=== PATIENT | male | born 1945 | race Caucasian/White ===

== ENCOUNTER 2017-12-23 12:08 | Emergency (ER) | payer MEDICARE ==
[2017-12-23 12:31] VITALS: BP 155/94
--- NOTE | 2017-12-23 13:15 | UC ---
Respiratory Complaint HPI - HPI Summary HPI Summary: Pt c/o cough, nasal congestion and SOB X 6 months. Pt states taht he "gets in coughing fits and can not catch his breath". reports that pt will "turn blue" when in coughing fit. Pt is not UTD with pertussis vaccine. - History of Current Complaint Chief Complaint: UCRespiratory Stated Complaint: COUGH X 6 MONTHS Time Seen by Provider: 12/23/17 12:58 Hx Obtained From: Patient Onset/Duration: Gradual Onset, Lasting Weeks, Still Present Timing: Intermittent Episodes Severity Initially: Mild Severity Currently: Moderate Pain Intensity: 0 Character: Cough: Productive Aggravating Factors: Exertion, Deep Breaths, Recumbent Position Alleviating Factors: Nothing Associated Signs And Symptoms: Positive: Chills, URI - Risk Factors Pulmonary Embolism Risk Factors: Smoking - hx Cardiac Risk Factors: Smoking - hx, Prior MN Pseudomonas Risk Factors: Chronic Lung Disease - has at home O2 given after MN to use as needed Tuberculosis Risk Factors: Diabetes, Smoking - hx of - Allergies/Home Medications Allergies/Adverse Reactions: Allergies Allergy/AdvReac Type Severity Reaction Status Date / Time No Known Allergies Allergy Verified 12/23/17 12:25 Home Medications: Home Medications Ascorbic Acid TAB* [Vitamin C TAB*] 500 mg PO DAILY 12/23/17 [History Confirmed 12/23/17] Atorvastatin* [Lipitor 80 MG*] 80 mg PO DAILY 12/23/17 [History Confirmed ] Calcium Carb/D3/Mag Aa Chelate [Coral Calcium Capsule] 1 cap PO EVERY OTHER DAY 12/23/17 [History Confirmed 12/23/17] Cyanocobalamin TAB* [Vitamin B12 TAB*] 500 mcg PO DAILY 12/23/17 [History Confirmed 12/23/17] Dulaglutide (NF) [Trulicity (NF)] 1.5 mg SUBCUT WEEKLY 12/23/17 [History Confirmed 12/23/17] Enalapril TAB* [Vasotec TAB*] 20 mg PO BID 12/23/17 [History Confirmed 12/23/17] Furosemide TAB* [Lasix TAB*] 80 mg PO DAILY 12/23/17 [History Confirmed 12/23/17 ] Influenza VAC *QUAD* * [Fluarix *Quad* *] 0.5 ml IM .ONCE [History Confirmed 12/23/17] Levothyroxine TAB* [Synthroid 150 MCG TAB*] 150 mcg PO DAILY 12/23/17 [History Confirmed 12/23/17] Metoprolol Succinate XL TAB* [Toprol XL TAB*] 100 mg PO BID 12/23/17 [History Confirmed 12/23/17] Pneumococcal *Vac Polyvalent [Pneumococcal Vac 23-Polyvalent*] 0.5 ml .SEE ORDER ONCE 12/23/17 [History Confirmed 12/23/17] Spironolactone TAB* [Aldactone TAB 25 MG*] 50 mg PO DAILY 12/23/17 [History Confirmed 12/23/17] Warfarin TAB(*) [Coumadin TAB(*)] 5 mg PO DAILY 12/23/17 [History Confirmed ] amLODIPine TAB* [Norvasc 5 mg TAB*] 10 mg PO DAILY 12/23/17 [History Confirmed 12/23/17] metFORMIN* [Glucophage 1000 MG TAB *] 1,000 mg PO BID 12/23/17 [History Confirmed 12/23/17] PMH/Surg Hx/FS Hx/Imm Hx Previously Healthy: Yes Endocrine History: Diabetes, Dyslipidemia Cardiovascular History: Cardiac Disease, Hypertension Respiratory History: COPD - Surgical History Surgical History: Yes Surgery Procedure, Year, and Place: Coronary Artery Stents x 2012, [facility] - Family History Known Family History: Positive: Cardiac Disease - Social History Occupation: Retired Lives: With Family Alcohol Use: None Substance Use Type: None Smoking Status (MU): Former Smoker Type: Cigarettes Have You Smoked in the Last Year: No - Immunization History Vaccination Up to Date: No Review of Systems Constitutional: Chills, Fatigue Skin: Negative Eyes: Negative ENT: Sinus Congestion Respiratory: Shortness Of Breath, Cough Cardiovascular: Negative Gastrointestinal: Negative Genitourinary: Negative Motor: Negative Neurovascular: Negative Musculoskeletal: Negative Neurological: Negative Psychological: Negative Is Patient Immunocompromised?: No All Other Systems Reviewed And Are Negative: Yes Physical Exam Triage Information Reviewed: Yes Appearance: Ill-Appearing Vital Signs: Initial Vital Signs Temp 98.4 F 12/23/17 12:21 Pulse 100 12/23/17 12:21 Resp 24 12/23/17 12:21 BP 155/94 12/23/17 12:21 Pulse Ox 95 10/27/18 12:21 Vital Signs Reviewed: Yes Eye Exam: Normal ENT: Positive: Nasal congestion Dental Exam: Normal Neck exam: Normal Respiratory: Positive: Decreased breath sounds Cardiovascular Exam: Normal Cardiovascular: Positive: Tachycardia Musculoskeletal Exam: Normal Neurological Exam: Normal Psychological Exam: Normal Skin Exam: Normal UC Diagnostic Evaluation - Laboratory O2 Sat by Pulse Oximetry: 95 - Radiology Summary of Radiographic Findings: IMPRESSION: FINDINGS SUGGESTIVE OF COPD, NO EVIDENCE FOR ACUTE FINDING. Respiratory Course/Dx - Differential Dx/Diagnosis Differential Diagnosis/HQI/PQRI: Bronchitis, Influenza, Other - pertussis, pneumonia Provider Diagnoses: bronchitis Discharge - Sign-Out/Discharge Documenting (check all that apply): Patient Departure All imaging exams completed and their final reports reviewed: Yes - Discharge Plan Condition: Stable Disposition: HOME Prescriptions: Albuterol HFA INHALER* [Ventolin HFA Inhaler*] 1 - 2 puff INH Q4H PRN #1 mdi PRN Reason: Sob/Wheezing Azithromycin TAB* [Zithromax TAB (Z-DAVID) 250 mg #6 tabs] 2 tab PO .TODAY, THEN 1 DAILY #1 david Benzonatate CAP* [Tessalon 100 MG CAP*] 100 mg PO Q8H PRN #30 cap PRN Reason: Cough Patient Education Materials: Acute Bronchitis (ED) Referrals: Linus Mclain MD [Primary Care Provider] - 5 Days - Billing Disposition and Condition Condition: STABLE Disposition: Home - Attestation Statements Provider Attestation: I was available for consult. This patient was seen by the DEBORAH. The patient was not presented to, seen by, or examined by me. -Donavon
--- NOTE | 2017-12-23 13:53 | RAD ---
INDICATION: Shortness of breath and cough. COMPARISON: There are no relevant prior studies available for comparison. TECHNIQUE: Dual-energy PA and lateral views of the chest were obtained. FINDINGS: The heart is within normal limits in size. Mediastinal and hilar contours appear within normal limits. The lungs are underinflated with more focal elevation of the right hemidiaphragm. The lungs appear clear. No pleural effusion is seen. There is flattening of the diaphragms suggestive of chronic obstructive pulmonary disease. IMPRESSION: LOW LUNG VOLUMES, NO EVIDENCE FOR ACUTE FINDING.
[2017-12-23] MEDS ORDERED: Ipratropium 0.5MG/2.5ML NEB* 0.5 MG/2.5 ML NEB.SOLN INH ONE (13:59)
[2017-12-26 19:48] LABS: Bordetella pertussis PCR Negative
--- NOTE | 2017-12-27 07:12 | UC ---
- Progress Note Progress Note: kameron Luciano no change ljj 12/27/2017 Discharge - Sign-Out/Discharge Documenting (check all that apply): Post-Discharge Follow Up All imaging exams completed and their final reports reviewed: Yes - Discharge Plan Condition: Stable Disposition: HOME Prescriptions: Albuterol HFA INHALER* [Ventolin HFA Inhaler*] 1 - 2 puff INH Q4H PRN #1 mdi PRN Reason: Sob/Wheezing Azithromycin TAB* [Zithromax TAB (Z-JAY) 250 mg #6 tabs] 2 tab PO .TODAY, THEN 1 DAILY #1 jay Benzonatate CAP* [Tessalon 100 MG CAP*] 100 mg PO Q8H PRN #30 cap PRN Reason: Cough Patient Education Materials: Acute Bronchitis (ED) Referrals: Linus Mclain MD [Primary Care Provider] - 5 Days - Billing Disposition and Condition Condition: STABLE Disposition: Home
== END 2017-12-23 14:21 | disposition home or self-care (01) ==
LOC: UCCORT 12:08
DX: J40 Bronchitis, not specified as acute or chronic (principal); E11.9 Type 2 diabetes mellitus without complications; I10 Essential (primary) hypertension; J44.9 Chronic obstructive pulmonary disease, unspecified; E78.5 Hyperlipidemia, unspecified; Z79.01 Long term (current) use of anticoagulants; Z79.899 Other long term (current) drug therapy; Z95.5 Presence of coronary angioplasty implant and graft; Z87.891 Personal history of nicotine dependence
CPT/HCPCS: 71046; 86615; 87798; 99203; G0463